=== PATIENT | female | born 1945 | race Two or more races ===

== ENCOUNTER → 2018-10-28 | Outpatient (CLI) | payer MEDICARE, OTHER ==
--- NOTE | 2018-10-28 16:49 | RAD ---
AP view of the pelvis and two-view study of the left hip Clinical indications: Left hip pain. FINDINGS: No acute fracture or dislocation or lytic process is evident. There is moderate joint space narrowing of the left hip joint with moderate spurring and subchondral sclerosis. There is mild joint space narrowing and minimal spurring of the right hip joint. Mild degenerative osteoarthritis of both SI joints is seen. IMPRESSION: Moderate primary degenerative osteoarthritis of the left hip joint. Electronically signed by: David Samano MD (10/28/2018 4:46 PM) [facility]
== END | disposition home or self-care (01) ==
LOC: RAD 13:29
PROVIDERS: ATTEND Orthopaedic Surgery Sports Medicine
DX: M16.12 Unilateral primary osteoarthritis, left hip (principal); M25.852 Other specified joint disorders, left hip; M76.892 Other specified enthesopathies of left lower limb, excluding foot
CPT/HCPCS: 73502

== ENCOUNTER → 2019-10-12 | Outpatient (CLI) | payer MEDICARE, OTHER ==
--- NOTE | 2019-10-12 16:09 | KCIC ---
EXAM: Dual energy x-ray absorptiometry (DEXA). HISTORY: Osteoporosis. TECHNIQUE: Dual energy x-ray absorptiometry of the lumbar spine and left was performed. T-score of average bone mineral density based was calculated based on standard deviations above or below the expected young adult normal value. Diagnostic definitions were established by the [employer]. FINDINGS: The average bone mineral density associated with L1-L4 is 0.987 g/cm^2, corresponding with a T-score of -0.5. The average total bone mineral density associated with the left hip is 0.736 g/cm^2, corresponding with a T-score of -1.7. No comparison examinations are available. Refer to the worksheets for full detail. IMPRESSION: 1. Normal mineral density in the lumbar spine and low normal bone mineral density in the left hip. Electronically signed by: Maggie Kelly MD (10/12/2019 4:06 PM) [id number]
== END | disposition home or self-care (01) ==
LOC: KCIC DEXA 11:05
PROVIDERS: ATTEND Family Medicine
DX: M81.0 Age-related osteoporosis without current pathological fracture (principal)
CPT/HCPCS: 77080